=== PATIENT | male | born 1945 | race Caucasian/White ===

== ENCOUNTER → 2017-10-06 | Day surgery (SDC) | payer MEDICARE ==
[~2017-10-06] MED LIST: BUPIVACAINE HCL PF 0.5% 10 ML VIAL ONE; LACTATED RINGER'S 1000 ML INJ 1,000 ML ONE; ONDANSETRON HCL 4 MG/2 ML VIAL IV PUSH ONE; PROPOFOL 100 MG/10 ML INJ IV ONE; ceFAZolin INJ 1,000 MG VIAL ONE
--- NOTE | 2017-10-06 10:17 | PD.OP ---
cc: Michael Sadler Jr., MD Operative Report Date of Surgery: Oct 06, 2017 Preoperative Diagnosis: Left long trigger finger Postoperative Diagnosis: Same Procedure: Left long trigger finger release Anesthesia: Gen. Surgeon: Michael Sadler Clarity Developer(s): Staff Resident Surgeon: None Operation and Findings: Patient was seen and evaluated preoperatively and found to have a debilitating and painful trigger finger at the left long finger, that has so far failed nonoperative treatment. Informed consent was obtained after detailed discussion of risk and benefits including bleeding, infection, injury to arteries, nerves, and blood vessels, weakness and numbness of hand, and tendon rupture. Informed consent was obtained. Patient received IV antibiotics prior to incision. Timeout procedure was performed. Operative extremity was prepped with alcohol followed by Hibiclens and draped usual sterile fashion. A 1 cm longitudinal incision was made with the proximal palmar crease and carried by sharp dissection through the subcutaneous tissue. Blunt dissection was used to expose the flexor tendon and the proximal edge of the A1 arlen. Using a #11 knife blade, the A1 arlen was incised from proximal to distal extent. The finger was then put through a full range of motion with no triggering and I could see the hyperthrophic bump on the flexor tendon appear and disappear, and there was no triggering. The wound was irrigated copiously with normal saline and the incision closed with 2-0 nylon. A sterile pressure dressing was placed over the hand, and the tourniquet was deflated. The patient was awakened and returned to recovery in apparently good condition. POSTP-OP PLAN OF ACTIVITY Antibiotics: none Antiocoagulation: none Weight bearing status: WBAT Dressing: Do not remove until outpatient clinic visit Dispo: expected discharge TODAY home from PACU Michael Sadler Jr., MD Oct 06, 2017 10:16
== END | disposition home or self-care (01) ==
LOC: ESDC 08:54
PROVIDERS: ATTEND Orthopaedic Surgery
DX: M65.332 Trigger finger, left middle finger (principal)
CPT/HCPCS: 01810; 26055; J0690; J2405; J3010; J7120